=== PATIENT | male | born 1995 ===

== ENCOUNTER 2024-09-20 08:38 | Emergency (ER) | payer OTHER, SELFPAY ==
[2024-09-20 08:48] VITALS: BP 137/63; PULSE 82; RESP 16; TEMP 36.4; O2SAT 98; BMI 27.3
--- NOTE | 2024-09-20 09:01 | DI.RAD.S_ITS ---
PROCEDURE: XR HIP W PEL IF DONE RT 2V INDICATIONS: Fall right hip pain with weight bearing TECHNIQUE: AP pelvis with lateral view(s) of the right hip(s). COMPARISON: None. FINDINGS: Bones: No fractures or dislocations. No evidence of avascular necrosis of femoral head. Pelvic ring appears intact. No suspicious bony lesions. Soft tissues: The visualized bowel gas pattern is normal. No suspicious soft tissue calcifications. IMPRESSION: No right hip fracture or dislocation. No evidence of avascular necrosis. Dictated by: Marbin Diamond M.D. on 09/20/2024 at 9:37 Approved by: Marbin Diamond M.D. on 09/20/2024 at 9:37
--- NOTE | 2024-09-20 09:37 | PC.NURSE ---
Unable to lift leg off bed with out significant pain in groin.
[2024-09-20] MEDS: KETOROLAC 30 MG/ML VIAL IM (09:53)
--- NOTE | 2024-09-20 10:03 | ED.LOWEXIN ---
HPI - Extremity Injury (Lower) General Chief Complaint: Extremity Injury, Lower Stated Complaint: Severe RT groin pain Time Seen by Provider: 09/20/24 09:32 Source: patient Mode of arrival: Family Vehicle History of Present Illness HPI Narrative: Patient is a healthy 29-year-old male who presents today with right hip and groin pain. Reports he was playing basketball yesterday he kind of fell to the ground landed on the right hip. Some mild pain in his back no testicular pain or swelling. It hurts to ambulate and bear weight. He did take some ibuprofen last night. No other injury he was able to finish playing but then started noticing increasing pain as time went on. Related Data Allergies Allergy/AdvReac Type Severity Reaction Status Date / Time No Known Drug Allergies Allergy Verified 09/20/24 08:54 Patient History Social History Smoking Status: Never smoker Smoking Status: Never smoker Exam Initial Vital Signs Initial Vital Signs: Vital Signs Temperature 97.6 F 09/20/24 08:48 Pulse Rate 82 09/20/24 08:48 Respiratory Rate 16 09/20/24 08:48 Blood Pressure 137/63 09/20/24 08:48 Pulse Oximetry 98 09/20/24 08:48 Oxygen Delivery Method Room Air 09/20/24 08:48 GENERAL: Alert pleasant well-appearing 29-year-old male CARDIOVASCULAR: peripheral pulses in tact, cap refill <2 sec RESPIRATORY: No respiratory distress, speaks in full sentences without difficulty EXTREMITIES: Normal range of motion, no clubbing or edema. Neurovascularly intact Right iliac crest has some pain along with inguinal ligament mild pain posteriorly distal pedal pulse intact he does have pain with hip flexion no internal external rotation or pain no obvious contusion or hematoma NEUROLOGICAL: Cranial nerves II through XII grossly intact. Normal gait and speech. SKIN: Warm, dry, no petechiae, no rashes or lesions. Course Orders Ordered: ED Orders 09/20/24 09:01 XR hip w pel if done RT 2V Stat Discontinued Medications Ketorolac Tromethamine (Ketorolac 30 Mg/Ml Vial) 30 mg IM NOW ONE Stop: 09/20/24 09:37 Last Admin: 09/20/24 09:53 Dose: 30 mg Documented By: [facility] Vital Signs Vital signs: Vital Signs - 8 hr 09/20/24 08:48 09/20/24 10:19 09/20/24 10:21 Temperature 97.6 F Pulse Rate 82 69 69 Respiratory Rate 16 18 18 Blood Pressure 137/63 135/57 L 135/57 L Pulse Oximetry 98 97 97 Oxygen Delivery Method Room Air Room Air Room Air MDM - Extremity Injury (Lower) Imaging Data Extremity x-ray #1: Radiologist's Impression: PROCEDURE: XR HIP W PEL IF DONE RT 2V INDICATIONS: Fall right hip pain with weight bearing TECHNIQUE: AP pelvis with lateral view(s) of the right hip(s). COMPARISON: None. FINDINGS: Bones: No fractures or dislocations. No evidence of avascular necrosis of femoral head. Pelvic ring appears intact. No suspicious bony lesions. Soft tissues: The visualized bowel gas pattern is normal. No suspicious soft tissue calcifications. IMPRESSION: No right hip fracture or dislocation. No evidence of avascular necrosis. Dictated by: Marbin Diamond M.D. on 09/20/2024 at 9:37 MDM Narrative Medical decision making narrative: Patient is a 29-year-old male who presents today with right hip and groin pain after an injury. He has not had any sort of testicular pain or swelling low suspicion for torsion. He was given Toradol here which does help some with pain. X-rays negative for fracture. I suspect sprain and strain at this time. Supportive care only given crutches to use as needed. Discharge Plan Departure Patient Disposition: Home Clinical Impression: Sprain of right hip Instructions: DI for Hip Pain Activity Restrictions/Additional Instructions: *You have been diagnosed with right hip strain *What to do: At this time weightbear as tolerated use crutches as needed ice as needed *Continue to take medications as directed Motrin 600 mg every 6 hours for [id number] pain Tylenol 1000 mg every 6 hours for [id number] pain *Follow up with your primary care provider in 2-3 days or call [phone] *Return to ER if you should have increasing pain numbness tingling weakness or any new, worsening or concerning symptoms Stand Alone Forms: Patient Portal/API/Survey
[2024-09-20 10:19] VITALS: BP 135/57; PULSE 69; RESP 18; O2SAT 97
[2024-09-20 10:21] VITALS: BP 135/57; PULSE 69; RESP 18; O2SAT 97
== END 2024-09-20 10:22 | disposition home or self-care (01) ==
PROVIDERS: Emergency Provider Emergency Medicine
DX: S73.191A Other sprain of right hip, initial encounter (principal); W18.30XA Fall on same level, unspecified, initial encounter; Y93.67 Activity, basketball
CPT/HCPCS: 73502; 96372; 99284; J1885